=== PATIENT | female | born 1975 | race Hispanic/Latino ===

== ENCOUNTER 2017-02-20 04:04 | Emergency (ER) | payer SELFPAY ==
[2017-02-20 04:16] VITALS: BMI 23.4
[2017-02-20 04:18] VITALS: BP 119/81; PULSE 78; TEMP 98.2
--- NOTE | 2017-02-20 04:37 | ED PDOC ---
Arrival/HPI - History of Present Illness Time/Duration: 24 hours Symptom Onset: Sudden Symptom Course: Unchanged Quality: Stabbing <Diann Lew - Last Filed: 02/20/17 04:45> <Steffen Samuel - Last Filed: 02/20/17 04:50> - General Time Seen by Provider: 02/20/17 04:05 - History of Present Illness Narrative History of Present Illness (Text): 02/20/17 04:35 41 year old female with no significant past medical history presents for right ear pain. Patient states that she developed right ear pain suddenly yesterday afternoon and she attributes it to "a bug bite". Patient states that she feels like there is a bug in her ear. patient c/o right jaw pain as well. Patient placed neosporin inside of her ear today. (Diann Lew) Past Medical History - Provider Review Nursing Documentation Reviewed: Yes - Cardiac Hx Cardiac Disorders: Yes Hx Mitral Valve Prolapse: Yes - Pulmonary Hx Respiratory Disorders: Yes Hx Asthma: Yes - Neurological Hx Neurological Disorder: No - HEENT Hx HEENT Disorder: No - Renal Hx Renal Disorder: No - Endocrine/Metabolic Hx Endocrine Disorders: No - Hematological/Oncological Hx Blood Disorders: No - Integumentary Hx Dermatological Disorder: No - Musculoskeletal/Rheumatological Hx Musculoskeletal Disorders: No - Gastrointestinal Hx Gastrointestinal Disorders: No - Genitourinary/Gynecological Hx Genitourinary Disorders: No - Psychiatric Hx Psychophysiologic Disorder: Yes Hx Depression: Yes Hx Substance Use: No - Surgical History Hx Orthopedic Surgery: Yes <Diann Lew - Last Filed: 02/20/17 04:45> Family/Social History - Physician Review Nursing Documentation Reviewed: Yes Family/Social History: Unknown Family HX Smoking Status: Never Smoked Hx Alcohol Use: No Hx Substance Use: No <Diann Lew - Last Filed: 02/20/17 04:45> Allergies/Home Meds <Diann Lew - Last Filed: 02/20/17 04:45> <Steffen Samuel - Last Filed: 02/20/17 04:50> Allergies/Adverse Reactions: Allergies amoxicillin Allergy (Verified 02/20/17 04:18) ANAPHYLAXIS EGG Allergy (Verified 02/20/17 04:18) ANAPHYLAXIS Penicillins Allergy (Verified 02/20/17 04:18) ANAPHYLAXIS Review of Systems - Review of Systems Constitutional: Normal Eyes: Normal ENT: Other (ear pain) Respiratory: Normal. absent: SOB, Cough, Wheezing Cardiovascular: Normal. absent: Chest Pain Gastrointestinal: Normal. absent: Abdominal Pain, Constipation, Diarrhea, Nausea, Vomiting Genitourinary Female: Normal Skin: Normal. absent: Rash, Skin Lesions Neurological: Normal. absent: Headache, Dizziness Hemo/Lymphatic: Normal. absent: Adenopathy Psychiatric: Normal. absent: Anxiety, Depression <Diann Lew - Last Filed: 02/20/17 04:45> Physical Exam Temperature: Afebrile Blood Pressure: Normal Pulse: Regular Respiratory Rate: Normal Appearance: Positive for: Well-Appearing, Non-Toxic, Comfortable Pain Distress: Moderate Mental Status: Positive for: Alert and Oriented X 3 - Systems Exam Head: Present: Atraumatic Ears: Present: NORMAL TM, Normal Canal. No: Erythema, TM Bulging Mouth: Present: Moist Mucous Membranes. No: Dry Pharnyx: No: ERYTHEMA, EXUDATE, TONSILS ENLARGED Nose (Internal): Present: Normal Inspection Respiratory/Chest: Present: Clear to Auscultation, Good Air Exchange. No: Respiratory Distress, Accessory Muscle Use, Wheezes, Rales, Rhonchi Cardiovascular: Present: Regular Rate and Rhythm, Normal S1, S2. No: Murmurs, Rub, Gallop, Muffled Abdomen: Present: Normal Bowel Sounds. No: Tenderness, Distention Neurological: Present: GCS=15 Skin: Present: Warm, Dry, Normal Color. No: Rashes Psychiatric: Present: Alert, Oriented x 3, Normal Insight, Normal Concentration <Diann Lew - Last Filed: 02/20/17 04:45> Medical Decision Making <Diann Lew - Last Filed: 02/20/17 04:45> <Steffen Samuel - Last Filed: 02/20/17 04:50> ED Course and Treatment: 02/20/17 04:40 Patient will be given Bactrim antibiotic for 10 days 02/20/17 04:44 Patient will be given Toradol for pain. (Diann Lew) Impression: Pt seen and evaluated with medical office assistant instructor. Pt, with no significant past medical history, presented for right ear pain since yesterday afternoon. Aware and agree with HPI, clinical findings, plan, and management. 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 / has examined the patient and agrees with the treatment plan. <Steffen Samuel - Last Filed: 02/20/17 04:50> Disposition/Present on Arrival - Present on Arrival Any Indicators Present on Arrival: No History of DVT/PE: No History of Uncontrolled Diabetes: No Urinary Catheter: No History of Decub. Ulcer: No History Surgical Site Infection Following: None - Disposition Have Diagnosis and Disposition been Completed?: Yes Disposition Time: 04:40 Patient Plan: Discharge <Diann Lew - Last Filed: 02/20/17 04:45> <Steffen Samuel - Last Filed: 02/20/17 04:50> - Disposition Diagnosis: Right ear pain Disposition: HOME/ ROUTINE Patient Problems: Current Active Problems Problem Status Onset Right ear pain Acute Condition: GOOD Additional Instructions: Thea Oliver, thank you for letting us take care of you today. Your provider was Dr. Diann Lew. You were treated for right ear pain. The emergency medical care you received today was directed at your acute symptoms. If you were prescribed any medication, please fill it and take as directed. It may take several days for your symptoms to resolve. Return to the Emergency Department if your symptoms worsen, do not improve, or if you have any other problems. Please contact your doctor or call one of the physicians/clinics you have been referred to that are listed on the Patient Visit Information form that is included in your discharge packet. Bring any paperwork you were given at discharge with you along with any medications you are taking to your follow up visit. Our treatment cannot replace ongoing medical care by a primary care provider (PCP) outside of the emergency department. Thank you for allowing the [facility] team to be part of your care today. If you had an X-Ray or CT scan: A Radiologist will review the ED reading if any change in treatment is needed we will contact you. If you had a blood, urine, or wound culture: It will take several days for the results, if any change in treatment is needed we will contact you. If you had an STI test: It will take 48 hours for the results. Please call after 1 week if you have not heard back. Prescriptions: Sulfamethoxazole/Trimethoprim [Bactrim DS 800 mg-160 mg] 1 tab PO BID #20 tab
[2017-02-20] MEDS ORDERED: Tmp-Smz 800 mg-160 mg DS Tab PO STA (04:51)
[2017-02-20 05:06] VITALS: RESP 18; O2SAT 99
== END 2017-02-20 05:06 | disposition home or self-care (01) ==
LOC: ED 04:04
DX: H92.01 Otalgia, right ear (principal); I34.1 Nonrheumatic mitral (valve) prolapse